=== PATIENT | male | born 1985 | race Two or more races ===

== ENCOUNTER 2021-11-15 21:52 | Emergency (ER) | payer MEDICAID ==
[~2021-11-15] VITALS: Ht 185.4 cm; Wt 87.0 kg
[2021-11-15 22:28] VITALS: BP 133/77
== END 2021-11-15 22:29 | disposition home or self-care (01) ==
LOC: ER 21:52
DX: F10.129 Alcohol abuse with intoxication, unspecified (principal); Y90.9 Presence of alcohol in blood, level not specified; Z00.00 Encounter for general adult medical examination without abnormal findings
CPT/HCPCS: 99281